=== PATIENT | female | born 1950 | race American Indian/Alaskan Native ===

== ENCOUNTER 2017-01-12 13:41 | Day surgery (SDC) | payer MEDICARE, OTHER ==
[~2017-01-12] VITALS: Ht 162.6 cm; Wt 106.1 kg
[~2017-01-12 13:41] MED LIST: DIAZEPAM5 MG PO; DITROPAN XL10 MG PO; LEVOTHYROXINE100 MCG PO; LEVOTHYROXINE75 MCG PO; LISINOPRIL5 MG PO; MACROBID 100 M100 MG PO; MAGOX 400400 MG PO; NORCO 10-325 T1 EACH PO; NORCO 5-325 TA1 EACH PO; OMEPRAZOLE40 MG PO; VITAMIN D35000 UNIT PO
--- NOTE | 2017-01-12 15:48 | NUR ---
01/12/17 1548 Florin Jackson PT ENCOURAGED TO TRY AND PASS THE AIR FROM HER COLON. THE PT STATES SHE UNDERSTANDS.
--- NOTE | 2017-01-24 10:25 | OR ---
[facility] [address], [place] [address] Signed DATE OF SERVICE: 01/12/2017 PREOPERATIVE DIAGNOSES: Generalized abdominal pain worse in the lower abdomen. Impressive infrequent bowel (monthly sometimes). POSTOPERATIVE DIAGNOSES: Sigmoid diverticular changes. Small polyp of the left colon (excised). PROCEDURE: Total colonoscopy to cecum with cold morcellation, polypectomy x1. ANESTHESIA: Intravenous sedation fentanyl 100 mcg, Versed at 5 mg. INDICATION: This 66-year-old woman is a patient of Dr. Joe Booth of [facility] and was referred to see kimmie moy for consideration of abdominal pain and possible evaluation for colonoscopy. She misunderstood this and presented to the office today for colonoscopy, completely bowel prepped, having used her sister (another patient of mine), and instructions for bowel prep. As the patient had not eaten, I agreed to rearrange my schedule and do colonoscopy later in the day today. As to her problem, she has abdominal pain, which is not well localized, but much of it in the lower abdomen. She has had no blood per rectum. She has very infrequent bowel movements, sometimes as long as several weeks. She is admitted at this time to undergo colonoscopy to better characterize her problem, understand the risks of bleeding, infection, and perforation. FINDINGS: To my amazement, the p rep was impressively good. Complete colonoscopy was undertaken, though actual intubation of the cecum was not forthcoming, due to obesity and other factors. It was visualized, however. There were diverticular changes of the sigmoid and left colon, which m a y account for her current symptoms. There is no sign of obstruction in any way. No stricture or neoplasm. A small polyp, which was somewhat flat was noted in the left colon near the sigmoid and this was excised completely with cold morcellation technique. PROCEDURE IN DETAIL: The patient was brought to the endoscopy suite and placed in lateral decubitus position. Electronically Signed By: RYAN READ MD 01/24/17 1025 PATIENT NAME: JOAQUIN HERRING OPERATIVE REPORT DATE OF : 50 PHYSICIAN: RYAN READ MD REPORT #: [id number] REPORT IS CONFIDENTIAL AND NOT TO BE RELEASED WITHOUT AUTHORIZATION [facility] [address], [place] [address] Signed Given intravenous sedation to the point of slurred speech and nystagmus. Digital rectal examination was normal. An Olympus video colonoscope passed in the rectum and manipulated throughout the colon. Numerous diverticula were seen in the sigmoid and left colon. Scope was advanced further beyond the transverse colon into the hepatic flexure, and into the right colon. Various maneuvers did not allow full intubation of the cecum. Abdominal wall stabilization, grasping of the cecum with forceps, and change of position to supine position was ineffective. In any case, it was visualized. The scope was then withdrawn from that point and examination throughout undertaken. Diverticula were seen in the left colon and in the mid to lower descending colon. Near the sigmoid, a small flat polyp was noted. This was excised with cold morcellation technique. Further withdrawal of scope showed no other abnormalities. Retroflexed view was normal. Scope was removed, and the patient was taken to recovery room in good condition. CONCLUDING DIAGNOSIS: Symptoms may well be diverticular in origin. Would recommend MiraLAX 1 scoop each day on the basis of her chronic constipation and consideration should be made also for Citrucel 1 tablespoon each day. If she does not note improvement in her situation, she will let me know, and we will see her back in clinic. MD NAVEEN Salvador/Vladimir /[id number] cc: Joe Booth MD Electronically Signed By: RYAN READ MD 01/24/17 1025 PATIENT NAME: JOAQUIN HERRING MANJU OPERATIVE REPORT DATE OF : 50 PHYSICIAN: RYAN READ MD REPORT #: [id number] REPORT IS CONFIDENTIAL AND NOT TO BE RELEASED WITHOUT AUTHORIZATION
== END 2017-01-12 16:17 | disposition home or self-care (01) ==
LOC: DS 13:41 → OPS 13:41 → DS 15:00 → OPS 16:17
PROVIDERS: Surgery
PROC: 0DBN8ZX Excision of Sigmoid Colon, Via Natural or Artificial Opening Endoscopic, Diagnostic (ICD-10-PCS; principal; 2017-01-12 15:00)
DX: D12.5 Benign neoplasm of sigmoid colon (principal); K21.9 Gastro-esophageal reflux disease without esophagitis; F17.210 Nicotine dependence, cigarettes, uncomplicated; F32.9 Major depressive disorder, single episode, unspecified; I10 Essential (primary) hypertension; E03.9 Hypothyroidism, unspecified; Z96.641 Presence of right artificial hip joint; Z90.49 Acquired absence of other specified parts of digestive tract; Z98.890 Other specified postprocedural states
CPT/HCPCS: 88305; 99152; 99153; J0694; J2250; J3010

== ENCOUNTER 2019-07-31 19:50 | Emergency (ER) | payer MEDICARE, OTHER ==
[~2019-07-31] VITALS: Ht 162.6 cm; Wt 104.3 kg
--- OUTSIDE RECORDS SUMMARY | 2019-07-31 19:54 | XMS ---
PreManage Notification: JOAQUIN HERRING Security Anesthesiologist And Critical Care Events No recent Security Events currently on file CRITERIA MET - PDM CARE PROVIDERS [facility] Primary Care 08/20/2014-[facility] PHONE: Unknown Michael has no Care Guidelines for this patient. Bruce VISIT COUNT (12 MO.) 1 FABBY Humphries TOTAL 1 NOTE: Visits indicate total known visits. ED/UCC VISIT TRACKING (12 MO.) 07/31/2019 19:51 FABBY Ortega OR TYPE: Emergency COMPLAINT: - COUGH,HEADACHE,FEVER INPATIENT VISIT TRACKING (12 MO.) No inpatient visits to display in this time frame [id number]
== END 2019-07-31 20:53 | disposition home or self-care (01) ==
LOC: ED 19:50
DX: J20.9 Acute bronchitis, unspecified (principal); I10 Essential (primary) hypertension; K21.9 Gastro-esophageal reflux disease without esophagitis; E03.9 Hypothyroidism, unspecified; F17.200 Nicotine dependence, unspecified, uncomplicated; Z88.0 Allergy status to penicillin; Z79.899 Other long term (current) drug therapy
CPT/HCPCS: 71046; 99283-25